=== PATIENT | male | born 1960 | race African-American/Black ===

== ENCOUNTER 2017-08-04 10:19 | Emergency (ER) | payer OTHER ==
[~2017-08-04] VITALS: Ht 175.3 cm; Wt 71.2 kg
--- NOTE | ~2017-08-04 | CR229 ---
[facility] A Service of [facility] & [facility] RADIOLOGY TEXT RESULTS PATIENT: GEORGE ALEXIS LOCATION: [facility] : 62 UNIT #: [id number] AGE: [address]: Gilda Varma MD SEX: M ORDER DR: [id number] [facility] [address] [place], [place] [address] [id number] E MR#: [id number] Acc #: [id number] NAME: GEORGE ALEXIS : 1960 SEX: M STUDY DATE/TIME: 08/04/2017 12:20 UNIT: [facility] ROOM: STUDY DESCRIPTION: CR Shoulder Min 2 View Lt Attending Physician: Gilda Varma M.D. Ordering Physician: Gilda Varma M.D. Primary Care Physician: Primary Care Physician No MEDICAL IMAGING REPORT This report is preliminary unless electronic signature is present EXAM Left shoulder series 08/04/2017 HISTORY Short of air. Short of air with left shoulder pain began this a.m. No known injury. FINDINGS AP internal external rotation views of the left shoulder are presented. No fracture or malalignment. Mild degenerative changes acromioclavicular joint. Periarticular soft tissues unremarkable. Visualized ribs intact. Visualized pulmonary parenchyma clear. If it would assist in management and patient is a candidate, shoulder could be further evaluated with elective MRI. Dictated by... Zeus Mallory M.D. THIS IS AN ELECTRONICALLY VERIFIED REPORT Zeus Mallory M.D. at 08/05/2017 6:17 PM JAY/nathanael TD: 08/04/2017 19:41 JOB #: [id number] MEDICAL IMAGING REPORT Page 1 of 1 COPY
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
--- NOTE | ~2017-08-04 | EKG ---
PATIENT: GEORGE ALEXIS UNIT #: [id number] Ventricular Rate: 63 BPM Atrial Rate: 63 BPM P-R Interval: 154 ms QRS Duration: 96 ms Q-T Interval: 474 ms QTC Calculation(Bezet): 485 ms P [place]: 47 degrees Calculated R [place]: 1 degrees Calculated T [place]: -16 degrees Diagnosis Line: Normal sinus rhythm Diagnosis Line: Moderate voltage criteria for LVH, may be normal Diagnosis Line: variant Diagnosis Line: Nonspecific T wave abnormality Diagnosis Line: Abnormal ECG Diagnosis Line: No previous ECGs available Diagnosis Line: Confirmed by KAROLINA CUNNINGHAM MD ([id number]) on Diagnosis Line: 08/07/2017 10:46:37 AM INTERPRETING MD: MARISA RUBIO
[~2017-08-04 10:19] MED LIST: B/P PILL; BENADRYL PO; DILANTIN; DILANTIN PO; LISINOPRIL20 MG PO; WATER PILL
[2017-08-04 12:22] LABS: BASOPHIL% 0.5 % (0-2.5); DIFF IND NO; EOSINOPHIL# 0.2 X10e3 (0-0.7); EOSINOPHIL% 1.9 % (0.0-7.0); HEMATOCRIT 36.4 % (38.0-50.0); HEMOGLOBIN 12.7 gm/dL (13.0-16.0); LYMPHOCYTE# 1.1 X10e3 (1.0-3.5); LYMPHOCYTE% 12.5 % (17.0-45.0); MEAN CELL VOLUME 91.6 FL (83-96); MEAN CORPUSCULAR HEMOGLOBIN 31.9 PG (28-34); MEAN CORPUSCULAR HGB CONC 34.8 g/dL (30-36); MEAN PLATELET VOLUME 8.1 FL (6.5-11.5); MONOCYTE# 0.9 X10e3 (0-1.0); MONOCYTE% 9.9 % (3.0-12.0); NEUTROPHIL# 6.7 X10e3 (1.5-7.1); NEUTROPHIL% 75.2 % (40-75); PLATELET COUNT 165 X10e3 (140-420); RED BLOOD COUNT 3.97 X10e (3.90-5.60); RED CELL DISTRIBUTION WIDTH 13.6 % (11.0-15.5); WHITE BLOOD COUNT 8.9 X10e3 (4.0-10.5)
[2017-08-04 12:33] LABS: INR 1.1; PROTHROMBIN TIME (PATIENT) 11.4 SECONDS (10.0-11.7)
[2017-08-04 12:45] LABS: POC - CKMB 2.2 ng/mL (0.0-7.9); POC - TROPONIN <0.05 ng/mL (<=0.05)
[2017-08-04 12:51] LABS: ALBUMIN SERUM 3.5 g/dL (3.5-5.0); BILIRUBIN,TOTAL 0.5 mg/dL (0.2-2.0); BUN/CREATININE RATIO 7.24; CALCIUM SERUM 8.5 mg/dL (8.4-10.2); CREATININE SERUM 6.9 mg/dL (0.6-1.4); GLOM FILT RATE Estimated 9.4 mL/min (>60); POTASSIUM 4.1 mmol/L (3.5-5.1)
[2017-08-04 14:16] LABS: POC - CKMB 1.5 ng/mL (0.0-7.9); POC - TROPONIN <0.05 ng/mL (<=0.05)
== END 2017-08-04 15:04 | disposition home or self-care (01) ==
LOC: CED 10:19
PROVIDERS: Emergency Medicine
DX: M79.602 Pain in left arm (principal); E11.9 Type 2 diabetes mellitus without complications; I10 Essential (primary) hypertension; G40.909 Epilepsy, unspecified, not intractable, without status epilepticus; F17.200 Nicotine dependence, unspecified, uncomplicated; Z79.899 Other long term (current) drug therapy
CPT/HCPCS: 36415; 71010; 73030; 80053; 80185; 82553; 84484; 85025; 85610; 93005; 99284

== ENCOUNTER 2017-08-07 09:17 | Inpatient (IN) | payer OTHER ==
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
--- NOTE | ~2017-08-07 | EKG ---
PATIENT: GEORGE ALEXIS UNIT #: [id number] Ventricular Rate: 67 BPM Atrial Rate: 67 BPM P-R Interval: 152 ms QRS Duration: 88 ms Q-T Interval: 450 ms QTC Calculation(Bezet): 475 ms P [place]: 44 degrees Calculated R [place]: 4 degrees Calculated T [place]: -2 degrees Diagnosis Line: Normal sinus rhythm Diagnosis Line: T wave abnormality, consider inferolateral Diagnosis Line: ischemia Diagnosis Line: Abnormal ECG Diagnosis Line: When compared with ECG of 04-AUG-2017 10:34, Diagnosis Line: No significant change was found Diagnosis Line: Confirmed by BHAVANA GODINEZ MD ([id number]) on 08/09/2017 Diagnosis Line: 10:58:13 PM INTERPRETING MD: HERBERT RUBIO
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
--- NOTE | ~2017-08-07 | CR229 ---
[facility] A Service of [facility] & [facility] RADIOLOGY TEXT RESULTS PATIENT: GEORGE ALEXIS LOCATION: A 314-01 : [birth year] UNIT #: [id number] AGE: [address]: Wallace Delarosa MD SEX: M ORDER DR: [id number] [facility] [address] [place], [place] [address] [id number] E MR#: [id number] Acc #: [id number] NAME: GEORGE ALEXIS : 1960 SEX: M STUDY DATE/TIME: 08/07/2017 9:53 UNIT: [place] ROOM: STUDY DESCRIPTION: CR Shoulder Min 2 View Lt Attending Physician: Evangelist Peña D.O. Ordering Physician: Evangelist Peña D.O. Primary Care Physician: No Primary Care Physician MEDICAL IMAGING REPORT This report is preliminary unless electronic signature is present EXAMINATION Three views left shoulder. DATE 08/07/2017 HISTORY Shortness breath, chest pain, and left shoulder pain today. COMPARISON Left shoulder radiographs, 08/04/2017. FINDINGS No fracture. No dislocation. Mild degenerative change of the left AC joint similar to prior study. Imaged left ribs appear intact. Imaged left lung apex is clear. IMPRESSION 1. Mild left AC joint arthropathy. 2. No acute left shoulder findings. Dictated by... Patience Eagle M.D. THIS IS AN ELECTRONICALLY VERIFIED REPORT Patience Eagle M.D. at 08/08/2017 1:11 PM Mary Ellen/tiera TD: 08/07/2017 13:31 JOB #: [id number] MEDICAL IMAGING REPORT Page 1 of 1 COPY
--- NOTE | ~2017-08-07 | HP ---
Unit #: [id number] #: [id number] Patient: GEORGE ALEXIS [id number] [address] [address] [id number] I MR#: [id number] NAME: GEORGE ALEXIS ROOM: 76007 Age: 57 Sex: M Admission Date: 08/07/2017 : 1960 Attending Physician: Wilda Moody M.D. Primary Care Physician: No Primary Care Physician HISTORY AND PHYSICAL CHIEF COMPLAINT Generalized body pain. HISTORY OF PRESENT ILLNESS The patient is a 57-year-old male with history of hypertension and end-stage renal disease on hemodialysis, and (1) , brought to the emergency room with generalized pain. The patient has had multiple visits to the emergency room for similar reasons and stated that he is unable to walk and wanted to be cured. The patient stated that the pain is mainly in the upper chest where the catheter is in place for the dialysis, and the patient has been admitted for the above reasons. Denies any chest pain. Denies any nausea and vomiting. Denies any trauma. PAST MEDICAL HISTORY 1. History of hypertension. 2. End-stage renal disease. 3. (2) . PAST SURGICAL HISTORY Placement of the port. HOME MEDICATIONS 1. Namenda. 2. Dilantin. 3. Risperdal. 4. Aspirin. 5. Hydralazine. 6. Amlodipine. 7. Depakote. SOCIAL HISTORY The patient smokes two packs per day and drinks alcohol occasionally. Denies any illicit drug abuse. ALLERGIES No known drug allergies. FAMILY HISTORY Reviewed and none. REVIEW OF SYSTEMS Positive for the generalized body pain and denies any nausea and vomiting. Denies any abdominal pain. All other systems have been reviewed and as mentioned above in H and P. Unit #: [id number] #: [id number] Patient: GEORGE ALEXIS PHYSICAL EXAMINATION GENERAL: The patient is lying on the bed, not in acute distress. VITALS: Temperature 98.1, pulse 70, respiratory rate 18, blood pressure 142/72, saturating 95% on room air. HEENT: Head: Atraumatic, normocephalic. Pupils equal, round, and reactive to light and accommodation. Extraocular movements are intact. Dry mucous membranes. NECK: Supple. LUNGS: Decreased air entry at the bases. HEART: Regular rate and rhythm. CHEST: Patient has a dialysis catheter on the right anterior chest. No drainage. No leakage. ABDOMEN: Soft. Positive bowel sounds. EXTREMITIES: No cyanosis. No clubbing. NEUROLOGIC: Alert, awake, oriented. No gross focal motor deficit. DIAGNOSTIC STUDIES LABORATORY: Troponin less than 0.05. Sodium 137, potassium 4, chloride 99, bicarbonate 28, glucose 95, BUN 53, creatinine 6.5, calcium 8.5. AST 31, ALT 21, albumin 3.4. INR is 1.1. WBC 10.4, hemoglobin 11.9, hematocrit 34.8, platelets 206,000. Glucose 83. IMAGING: Chest x-ray from August 05 shows lungs are well inflated without evidence of acute infectious or inflammatory disease. No pleural effusion or pneumothorax. ASSESSMENT 1. Generalized body pain. 2. End-stage renal disease on hemodialysis. 3. Anemia. PLAN Plan to admit to observation with telemetry. Continue with pain management and dialysis per renal. Continue with OT/PT. Further recommendations will follow. Dictated by Андрей Choudhary/ebenezer TD: 08/07/2017 14:37 JOB #: [id number] HISTORY AND PHYSICAL Page 1 of 1 X WILDA MOODY MD X HISTORY AND PHYSICAL
[2017-08-07 09:51] LABS: BASOPHIL# 0.1 X10e3 (0-0.3); BASOPHIL% 0.6 % (0-2.5); EOSINOPHIL# 0.1 X10e3 (0-0.7); EOSINOPHIL% 1.2 % (0.0-7.0); HEMATOCRIT 34.8 % (38.0-50.0); HEMOGLOBIN 11.9 gm/dL (13.0-16.0); LYMPHOCYTE# 1.1 X10e3 (1.0-3.5); LYMPHOCYTE% 10.2 % (17.0-45.0); MEAN CELL VOLUME 90.9 FL (83-96); MEAN CORPUSCULAR HEMOGLOBIN 31.1 PG (28-34); MEAN CORPUSCULAR HGB CONC 34.2 g/dL (30-36); MEAN PLATELET VOLUME 7.8 FL (6.5-11.5); MONOCYTE# 1.3 X10e3 (0-1.0); NEUTROPHIL# 7.8 X10e3 (1.5-7.1); PLATELET COUNT 206 X10e3 (140-420); RED BLOOD COUNT 3.82 X10e (3.90-5.60); RED CELL DISTRIBUTION WIDTH 13.1 % (11.0-15.5); WHITE BLOOD COUNT 10.4 X10e3 (4.0-10.5)
[2017-08-07] MEDS ORDERED: DEPAKOTE125 MG PO (09:54)
[2017-08-07 09:57] LABS: DIFF IND NO
[2017-08-07 10:05] LABS: INR 1.1; PARTIAL THROMBOPLASTIN TIME 28.6 SECONDS (23.5-31.3); PROTHROMBIN TIME (PATIENT) 11.5 SECONDS (10.0-11.7)
[2017-08-07] MEDS ORDERED: AMLODIPINE BESY10 MG PO (10:05)
[2017-08-07] MEDS ORDERED: HYDRALAZINE HC100 MG PO (10:05)
[2017-08-07] MEDS ORDERED: ASPIRIN81 MG PO (10:06)
[2017-08-07] MEDS ORDERED: DILANTIN PO (10:06)
[2017-08-07] MEDS ORDERED: NAMENDA5 MG PO ×2 (10:06→10:07)
[2017-08-07] MEDS ORDERED: RISPERDAL1 M1 PO (10:06)
[2017-08-07 10:08] LABS: POC - CKMB 1.2 ng/mL (0.0-7.9); POC - TROPONIN <0.05 ng/mL (<=0.05)
[2017-08-07 10:19] LABS: ALBUMIN SERUM 3.4 g/dL (3.5-5.0); BILIRUBIN, DIRECT 0.2 mg/dL (0.0-0.2); BILIRUBIN,INDIRECT 0.6 mg/dL (0.0-0.9); BILIRUBIN,TOTAL 0.8 mg/dL (0.2-2.0); BUN/CREATININE RATIO 8.15; CALCIUM SERUM 8.5 mg/dL (8.4-10.2); CREATININE SERUM 6.5 mg/dL (0.6-1.4); GLOM FILT RATE Estimated 10.1 mL/min (>60); PROTEIN TOTAL SERUM 7.2 g/dL (6.0-8.3)
[2017-08-07 11:57] LABS: POC - CKMB 1.1 ng/mL (0.0-7.9); POC - TROPONIN <0.05 ng/mL (<=0.05)
[2017-08-07 17:57] LABS: BASOPHIL% 0.4 % (0-2.5); EOSINOPHIL# 0.1 X10e3 (0-0.7); EOSINOPHIL% 1.4 % (0.0-7.0); HEMATOCRIT 30.2 % (38.0-50.0); HEMOGLOBIN 10.6 gm/dL (13.0-16.0); LYMPHOCYTE# 0.9 X10e3 (1.0-3.5); LYMPHOCYTE% 11.8 % (17.0-45.0); MEAN CELL VOLUME 91.6 FL (83-96); MEAN CORPUSCULAR HEMOGLOBIN 32.2 PG (28-34); MEAN CORPUSCULAR HGB CONC 35.2 g/dL (30-36); MEAN PLATELET VOLUME 8.1 FL (6.5-11.5); MONOCYTE# 1.2 X10e3 (0-1.0); MONOCYTE% 15.7 % (3.0-12.0); NEUTROPHIL# 5.5 X10e3 (1.5-7.1); NEUTROPHIL% 70.7 % (40-75); PLATELET COUNT 173 X10e3 (140-420); RED CELL DISTRIBUTION WIDTH 12.9 % (11.0-15.5); WHITE BLOOD COUNT 7.7 X10e3 (4.0-10.5)
[2017-08-07 18:00] LABS: DIFF IND NO
[2017-08-07 18:38] LABS: ALBUMIN SERUM 3.3 g/dL (3.5-5.0); BILIRUBIN,TOTAL 0.6 mg/dL (0.2-2.0); BUN/CREATININE RATIO 8.35; CALCIUM SERUM 8.2 mg/dL (8.4-10.2); CREATININE SERUM 6.7 mg/dL (0.6-1.4); GLOM FILT RATE Estimated 9.7 mL/min (>60); MAGNESIUM 2.4 mg/dL (1.6-3.0); POTASSIUM 4.1 mmol/L (3.5-5.1); PROTEIN TOTAL SERUM 7.1 g/dL (6.0-8.3)
[2017-08-07 20:53] LABS: ALBUMIN SERUM 3.1 g/dL (3.5-5.0); BILIRUBIN,TOTAL 0.6 mg/dL (0.2-2.0); BUN/CREATININE RATIO 8.85; CALCIUM SERUM 8.1 mg/dL (8.4-10.2); CREATININE SERUM 6.1 mg/dL (0.6-1.4); GLOM FILT RATE Estimated 10.9 mL/min (>60); MAGNESIUM 2.3 mg/dL (1.6-3.0); POTASSIUM 3.8 mmol/L (3.5-5.1)
[2017-08-07 22:20] LABS: BASOPHIL% 0.4 % (0-2.5); EOSINOPHIL# 0.2 X10e3 (0-0.7); EOSINOPHIL% 2.4 % (0.0-7.0); HEMATOCRIT 34.4 % (38.0-50.0); HEMOGLOBIN 11.9 gm/dL (13.0-16.0); LYMPHOCYTE# 1.1 X10e3 (1.0-3.5); LYMPHOCYTE% 13.2 % (17.0-45.0); MEAN CELL VOLUME 90.3 FL (83-96); MEAN CORPUSCULAR HEMOGLOBIN 31.2 PG (28-34); MEAN CORPUSCULAR HGB CONC 34.5 g/dL (30-36); MONOCYTE# 1.5 X10e3 (0-1.0); MONOCYTE% 17.7 % (3.0-12.0); NEUTROPHIL# 5.5 X10e3 (1.5-7.1); NEUTROPHIL% 66.3 % (40-75); PLATELET COUNT 196 X10e3 (140-420); RED BLOOD COUNT 3.81 X10e (3.90-5.60); WHITE BLOOD COUNT 8.3 X10e3 (4.0-10.5)
[2017-08-07 22:21] LABS: DIFF IND NO
[2017-08-08 06:11] LABS: HEMATOCRIT 32.4 % (38.0-50.0); HEMOGLOBIN 11.6 gm/dL (13.0-16.0); MEAN CELL VOLUME 89.7 FL (83-96); MEAN CORPUSCULAR HEMOGLOBIN 32.1 PG (28-34); MEAN CORPUSCULAR HGB CONC 35.8 g/dL (30-36); MEAN PLATELET VOLUME 7.7 FL (6.5-11.5); RED BLOOD COUNT 3.62 X10e (3.90-5.60); RED CELL DISTRIBUTION WIDTH 13.2 % (11.0-15.5); WHITE BLOOD COUNT 7.4 X10e3 (4.0-10.5)
[2017-08-08] MEDS ORDERED: HYDROCODON-ACE1 EAC7 PO (18:35)
== END 2017-08-08 20:22 | disposition home or self-care (01) | DRG 947 ==
LOC: CED 09:17 → CEDOF 13:00 → CED 13:04 → C3A PCU 13:04 → CEDOF 13:04 → C3A PCU 13:04 → CEDOF 14:07 → C3A PCU 14:07 → CED 14:07 → CEDOF 14:07 → C3A PCU 18:15
PROVIDERS: Emergency Medicine; Internal Medicine; Internal Medicine Nephrology
PROC: 5A1D00Z (ICD-10-PCS; principal; 2017-08-08)
DX: R52 Pain, unspecified (principal); N18.6 End stage renal disease; I12.0 Hypertensive chronic kidney disease with stage 5 chronic kidney disease or end stage renal disease; Z99.2 Dependence on renal dialysis; F17.210 Nicotine dependence, cigarettes, uncomplicated; D63.1 Anemia in chronic kidney disease; Z79.82 Long term (current) use of aspirin; G40.909 Epilepsy, unspecified, not intractable, without status epilepticus; F31.9 Bipolar disorder, unspecified; E88.09 Other disorders of plasma-protein metabolism, not elsewhere classified
CPT/HCPCS: 36415; 71010; 73030; 80048; 80053; 80076; 80186; 82550; 82553; 82947; 83735; 84100; 84484; 85025; 85027; 85610; 85730; 87340; 93005; 94760; 97116; 97162; 97167; 97530; 99285; G8978-GP; G8979-GP; G8987-GO; G8988-GO; J1644